=== PATIENT | male | born 1990 | race Caucasian/White ===

== ENCOUNTER 2019-05-27 12:12 | Emergency (ER) | payer OTHER, SELFPAY ==
--- NOTE | ~2019-05-27 | XR_ITS ---
EXAMINATION: XR abdomen obstructive series DATE: 05/27/2019 15:04 INDICATION: Epigastric abdominal pain. Nausea. TECHNIQUE: Upright and supine views of the abdomen were obtained. COMPARISON: None. FINDINGS: There are no dilated loops of bowel. There is a small volume of stool in the colon. No free intraperitoneal gas. IMPRESSION: 1. Normal bowel gas pattern. Reviewed, dictated and finalized at location A. TEGIC SOURCING SPECIALIST
--- NOTE | ~2019-05-27 | CT_ITS ---
EXAMINATION: CT abdomen pelvis w con DATE: 05/27/2019 19:28 INDICATION: Abdominal pain TECHNIQUE: Computed tomography (CT) of the abdomen and pelvis was performed with 100 mL Omnipaque-350 intravenous contrast. Automated exposure control and iterative reconstruction technique were employe d. The dose-length product was 205.71 mGy-cm. COMPARISON: None FINDINGS: Lung bases are clear. Heart size is normal. No pericardial or pleural effusion. Liver, gallbladder, s pleen, pancreas, bilateral adrenal glands and kidneys are normal. Normal appendix. No abnormal bowel wall thickening or obstruction. Very small amount of ascites in the deep pelvis. No abscess or free i ntraperitoneal gas. Bladder is normal. No pathologically enlarged abdominal or pelvic lymphadenopathy . Bilateral os acetabula and small bone island at the right femoral head. Bones are otherwise unremar kable. IMPRESSION: 1. Nonspecific small amount of ascites in the deep pelvis of indeterminate etiology. Normal gallbladd er and appendix with no other acute intra-abdominal/pelvic process. Reviewed, dictated and finalized at location A. GORY ANALYST IMPRESSION: 1. Nonspecific small amount of ascites in the deep pelvis of indeterminate etio logy. Normal gallbladder and appendix with no other acute intra-abdominal/pelvi c process.
[2019-05-27 12:19] VITALS: BP 108/61; PULSE 65; RESP 16; TEMP 36.3; O2SAT 100
[2019-05-27 12:28] LABS: Basophils Absolute Auto 0.1 K/mm3 (0.0-0.1); Basophils Percent Auto 0.8 % (0.2-1.2); Eosinophils Absolute Auto 0.2 K/mm3 (0-0.3); Hematocrit 42.1 % (42.0-52.0); Hemoglobin 13.9 g/dL (14.0-18.0); Immature Granulocyte Absolute 0.01 K/mm3 (0.00-0.031); Immature Granulocyte Percent A 0.2 % (0-0.5); Lymphocytes Absolute Auto 1.98 K/mm3 (0.9-3.2); Lymphocytes Percent Auto 31.6 % (18.3-44.2); Mean Corpuscular Hemoglobin 28.1 pg (26-34); Mean Corpuscular Volume 85.2 fl (80-100); Mean Platelet Volume 10.3 fl (7.4-10.4); Monocytes Absolute Auto 0.5 K/mm3 (0.1-0.6); Monocytes Percent Auto 7.5 % (2.6-8.5); Neutrophils Absolute Auto 3.6 K/mm3 (1.3-6.7); Neutrophils Percent Auto 56.9 % (45.5-73.1); Platelet Count Result 289 k/mm3 (150-375); Red Blood Count 4.94 M/mm3 (4.6-6.20); Red Cell Distribution Width 13.2 % (11.5-14.5); White Blood Count 6.3 K/mm3 (4.5-10.0)
[2019-05-27 12:47] LABS: Alanine Aminotransferase 19 U/L (4-50); Albumin Level 4.4 g/dL (3.5-5.1); Alkaline Phosphatase 74 U/L (38-126); Aspartate Amino Transferase 28 U/L (17-59); Bilirubin,Total 0.6 mg/dL (0.2-1.3); Blood Urea Nitrogen 12 mg/dL (9-20); Calcium 9.5 mg/dL (8.4-10.2); Carbon Dioxide 26 mmol/L (22-30); Chloride 100 mmol/L (98-107); Estimated CRCL calculation 93 ml/min; Estimated Glomerular Filt Rate > 60; Glucose 115 mg/dL (75-110); Lipase 56 U/L (23-300); Potassium 4.2 mmol/L (3.4-5.0); Sodium 138 mmol/L (137-145)
[2019-05-27 13:21] LABS: Add Urine Microscopic? NO; Appearance Urine Clear (Clear); Bilirubin Urine Negative (Negative); Blood Urine Negative (Negative); Color Urine Yellow (Yellow); Glucose Urine UA Negative (Negative); Ketones Urine Negative (Negative); Leukocyte Esterase Ur Negative LEU/UL (Negative); Nitrate Urine Negative (Negative); Protein Urine Negative (Negative); Urobilinogen Urine Negative mg/dL (<2.0)
--- NOTE | 2019-05-27 15:00 | ED.ABDPAIN ---
HPI - Abdominal Pain General Chief Complaint: Abdominal Pain Stated Complaint: abd pain Time Seen by Provider: 05/27/19 14:30 Source: patient Mode of arrival: ambulatory Limitations: no limitations History of Present Illness HPI narrative: Pt is a 29 y/o male who presents to the ED with c/o periumbilical ABD pain that started at 1030AM while he was at work. He reports associated N/V, but denies diarrhea or fever. He denies any ABD pain in the ED bed. 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 Pt smokes 1 cigar a day. MD elicited complaint: abdominal pain Onset (ago): hour(s) (6) Pain Consistency: now resolved Location: periumbilical Associated symptoms: nausea and vomiting Related Data Allergies Allergy/AdvReac Type Severity Reaction Status Date / Time coconut Allergy Swelling Verified 05/27/19 16:03 of Lip/Tongue/Throat Review of Systems Review of Systems: All systems reviewed & are unremarkable except as noted in HPI and below Constitutional: Constitutional: Denies fever(s) Gastrointestinal: Gastrointestinal: Reports abdominal pain, Denies diarrhea, Reports nausea and Reports vomiting PMFSH Past Medical History Medical History (Updated 05/27/19 @ 17:58 by Fernando Hunt DO) CAD (coronary artery disease) Nasal fracture Seizure Surgical History Surgical History (Updated 05/27/19 @ 15:05 by Danyel Deal) History of cardiac catheterization Social History Social History (Updated 05/27/19 @ 15:06 by Danyel Deal) Smoking status: Current every day smoker Tobacco type: cigars Additional smoking assessment comments: 1 cigar a day Exam Narrative: Exam Narrative: APPEARANCE: No acute distress, nontoxic, resting in bed HEENT: Normocephalic, atraumatic, OMM RESPIRATORY: No respiratory distress, clear to auscultation bilaterally with no rhonchi wheezing or rales CARDIOVASCULAR: RRR s murmur ABDOMINAL: Soft, nondistended, tender palpation epigastric, right upper quadrant left upper quadrant, no tenderness in right lower quadrant left lower quadrant, no rebound or guarding MUSCULOSKELETAl: Moves all extremities. No clubbing, cyanosis or edema. NEURO: Awake and alert. Following commands, speech normal, no focal deficits SKIN:: Warm, dry. Normal Color PSYCHIATRIC: Normal affect/mood Course Course Emergency Course: Patient states that they are feeling much better at this time. States abdominal pain has improved. Repeat abdominal exam shows the patient's abdomen to be soft no surgical abdomen present. Discussed with patient results of workup and diagnosis. Discussed need for follow-up with primary care physician, reasons to return to the emergency department in proper use of medication. Patient understands and agrees to current treatment plan Vital Signs Vital signs: Vital Signs Temperature 97.4 F L 05/27/19 12:19 Pulse Rate 65 05/27/19 12:19 Respiratory Rate 16 05/27/19 12:19 Blood Pressure 108/61 05/27/19 12:19 Pulse Oximetry 100 05/27/19 12:19 Temperature 97.4 F L 05/27/19 12:19 Pulse Rate 60 05/27/19 15:30 Respiratory Rate 16 05/27/19 15:30 Blood Pressure 115/67 05/27/19 15:30 Pulse Oximetry 98 05/27/19 15:30 MDM - Abdominal Pain MDM Narrative Medical decision making narrative: Patient's abdomen is soft without significant pain or signs of surgical abdomen on serial exams. Lab and x-ray evaluations are reviewed and patient is felt to be a reasonable candidate for outpatient management. Patient was instructed as to limitations of x-ray and laboratory evaluation and encouraged to return to ED or primary physician for repeat exam in 12 hours if continued or worsening pain Lab Data Result diagrams: 05/27/19 12:23 05/27/19 12:23 Labs: Lab Results 05/27/19 05/27/19 05/27/19 Range/Units 12:23 12:23 12:44 WBC 6.3 (4.5-10.0) K/mm3 RBC 4.94 (4.6-6.20) M/mm3 Hgb 13.9 L (14.0-18.0) g/dL Hct 42.1 (
[2019-05-27 15:30] VITALS: BP 115/67; PULSE 60; RESP 16; O2SAT 98
[2019-05-27] MEDS: LACTATED RINGERS 1,000 ML 999 ML IV CONT (16:13)
[2019-05-27] MEDS: KETOROLAC 30 MG/ML VIAL (*BKC) IV PUSH (16:13)
[2019-05-27 19:25] VITALS: BP 117/71; PULSE 71; RESP 17; O2SAT 99
[2019-05-27 20:38] VITALS: BP 111/61; PULSE 68; RESP 16; TEMP 36.4; O2SAT 98
== END 2019-05-27 20:45 | disposition home or self-care (01) ==
PROVIDERS: Emergency Provider Emergency Medicine
DX: R11.2 Nausea with vomiting, unspecified (principal); I25.10 Atherosclerotic heart disease of native coronary artery without angina pectoris; F17.290 Nicotine dependence, other tobacco product, uncomplicated
CPT/HCPCS: 36415; 74019; 74177; 80053; 81003; 83690; 85025; 96361; 96374; 99284; A9270; J1885; J7120; Q9967